=== PATIENT | female | born 1990 | race Caucasian/White ===

== ENCOUNTER 2018-01-04 10:10 | Emergency (ER) | payer MEDICAID, MEDICARE ==
[~2018-01-04] VITALS: Ht 165.1 cm; Wt 85.0 kg
[2018-01-04] MEDS: ONDANSETRON 4MG ODT PO ONE (11:00)
[2018-01-04] MEDS: ACETAMINOPHEN 325MG TABLET PO ONE (11:00)
[2018-01-04] MEDS: SODIUM CHLORIDE 0.9% 1,000 ML IV ONE (11:38)
[2018-01-04 11:50] LABS: CLARITY URINE CLEAR (CLEAR); COLOR URINE YELLOW (YELLOW); KETONES URINE NEGATIVE (NEGATIVE); LEUKOCYTE ESTERASE URINE 1+ (NEGATIVE); NITRITE URINE NEGATIVE (NEGATIVE); OCCULT BLOOD URINE TRACE (NEGATIVE); PH URINE 5.5 (4.5-8.0); PROTEIN URINE NEGATIVE (NEGATIVE); SPECIFIC GRAVITY URINE 1.019 (1.005-1.030); UROBILINOGEN URINE 0.2 E.U./dL (0.2-1.0)
[2018-01-04 12:01] LABS: BASOPHILS % 0.1 % (0.0-2.0); EOSINOPHILS % 1.8 % (0.0-5.0); HEMATOCRIT. 39.2 % (36.0-48.0); HEMOGLOBIN. 13.5 g/dL (12.0-16.0); LYMPHOCYTES % 18.4 % (20.0-50.0); MEAN CORPUSCULAR HEMOGLOBIN 30.9 pg (28.0-32.0); MEAN CORPUSCULAR VOLUME 89.9 fL (81.0-99.0); MONOCYTES % 6.4 % (2.0-8.0); NEUTROPHILS % 73.3 % (40.0-76.0); PLATELET 200 x1000/uL (130-400); RED BLOOD CELL COUNT 4.36 mill/uL (4.2-5.4); RED CELL DISTRIBUTION WIDTH 13.8 % (11.6-14.6)
[2018-01-04 12:04] LABS: CHLORIDE 104 mEq/L (98-107)
[2018-01-04 12:05] LABS: PROTHROMBIN TIME 10.5 sec (9.1-11.1)
[2018-01-04 12:31] LABS: *BARBITURATES SCREEN URINE NEGATIVE (NEGATIVE)
[2018-01-04 12:32] LABS: *AMPHETAMINES SCREEN URINE NEGATIVE (NEGATIVE); *BENZODIAZEPINES SCREEN URINE NEGATIVE (NEGATIVE); *COCAINE SCREEN URINE NEGATIVE (NEGATIVE); OPIATES URINE SCREEN NEGATIVE (NEGATIVE)
[2018-01-04 12:33] LABS: PHENCYCLIDINE URINE SCREEN NEGATIVE (NEGATIVE)
[2018-01-04 12:35] LABS: METHADONE URINE SCREEN NEGATIVE (NEGATIVE)
[2018-01-04 12:42] LABS: CANNABINOID URINE SCREEN PRESUMTIVE POSITIVE (NEGATIVE)
[2018-01-04 12:51] LABS: HEPATITIS B SURFACE ANTIGEN NEGATIVE
[2018-01-04 13:19] LABS: HEPATITIS B CORE AB IGM NEGATIVE
[2018-01-04 13:20] LABS: HEPATITIS A AB IGM NEGATIVE (NEGATIVE)
[2018-01-04 17:32] VITALS: BP 130/90
[2018-01-04] MEDS: POTASSIUM CHLORIDE 20MEQ TABLET SR PO ONE (18:17)
[2018-01-04] MEDS: NITROFURANTOIN 100MG M/M CAPSULE PO ONE (18:18)
== END 2018-01-04 18:33 | disposition home or self-care (01) ==
LOC: ER 10:10
DX: F12.188 Cannabis abuse with other cannabis-induced disorder (principal); N39.0 Urinary tract infection, site not specified; E87.6 Hypokalemia; E86.0 Dehydration; N17.0 Acute kidney failure with tubular necrosis; F12.10 Cannabis abuse, uncomplicated
CPT/HCPCS: 36415; 76700; 76857; 80053; 80305; 81003; 81025; 83036; 83690; 85025; 85610; 87040; 87086; 99285; J7030; Q0162; Z7610; 86705; 86709; 86803; 87340